=== PATIENT | male | born 1950 | race Caucasian/White ===

== ENCOUNTER 2018-02-12 22:10 | Observation (INO) | payer MEDICARE, MEDICAID ==
[~2018-02-12] VITALS: Ht 175.3 cm; Wt 98.0 kg
[~2018-02-12 22:10] MED LIST: BLOOD PRESSURE; NORV10TA PO; PRIN10TA PO
[2018-02-12 22:17] VITALS: BP 111/53; PULSE 84; RESP 18; TEMP 97.8; O2SAT 96
[2018-02-12 22:23] VITALS: O2SAT 98
[2018-02-12] MEDS ORDERED: LORazepam 2 MG/ML VIAL IV PUSH ONE (22:30)
[2018-02-12] MEDS ORDERED: SODIUM CHLORIDE 0.9% FLUSH 10 ML FLUSH IVF PRN (22:30)
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
[2018-02-12 22:42] LABS: BASOPHIL % 0.7 % (0.0-2.0); EOSINOPHIL # 0.1 TH/MM3 (0-0.4); EOSINOPHIL % 1.9 % (0.0-4.0); HEMATOCRIT 40.2 % (39.0-51.0); HEMOGLOBIN 13.8 GM/DL (13.0-17.0); LYMPH % 18.1 % (9.0-44.0); MEAN CORPUSCULAR HEMOGLOBIN 29.9 PG (27.0-34.0); MEAN CORPUSCULAR HGB CONC 34.3 % (32.0-36.0); MEAN PLATELET VOLUME 9.3 FL (7.0-11.0); MONO % 8.4 % (0.0-8.0); MONOCYTE # 0.5 TH/MM3 (0-0.9); NEUT % 70.9 % (16.0-70.0); PLATELET COUNT 179 TH/MM3 (150-450); RED BLOOD COUNT 4.62 MIL/MM3 (4.50-5.90); RED CELL DISTRIBUTION WIDTH 13.9 % (11.6-17.2); WHITE BLOOD COUNT 5.6 TH/MM3 (4.0-11.0)
[2018-02-12 23:06] LABS: ALBUMIN 3.8 GM/DL (3.4-5.0); ALT (GPT) 39 U/L (12-78); AST (GOT) 41 U/L (15-37); BICARBONATE 25.3 MEQ/L (21.0-32.0); BLOOD UREA NITROGEN 18 MG/DL (7-18); CALCIUM 8.5 MG/DL (8.5-10.1); CHLORIDE 96 MEQ/L (98-107); GLOMERULAR FILTRATION RATE 51 ML/MIN (>89); GLUCOSE,RANDOM 247 MG/DL (74-106); SODIUM (NA) 134 MEQ/L (136-145)
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
[2018-02-12 23:09] LABS: ALKALINE PHOSPHATASE 111 U/L (45-117); TOTAL BILIRUBIN ADULT 0.8 MG/DL (0.2-1.0)
[2018-02-12 23:18] LABS: ACETAMINOPHEN LESS THAN 2.0 MCG/ML (10.0-30.0)
[2018-02-13] VITALS (8 sets, daily range): BP systolic 90–173; BP diastolic 60–91; PULSE 62–103; RESP 16–20; TEMP 98.7; O2SAT 93–100
[2018-02-13] MEDS ORDERED: POTASSIUM CHLORIDE 10 MEQ CONTROLLED RELEASE TAB PO ONE (02:45)
[2018-02-13] MEDS ORDERED: LORazepam 2 MG/ML VIAL IV PUSH ONE (05:00)
[2018-02-13 05:22] LABS: AMORPHOUS SEDIMENT, URINE RARE; BILIRUBIN, URINE NEG (NEG); BLOOD, URINE NEG (NEG); GLUCOSE,URINE NEG (NEG); HYALINE CAST, URINE 3 /lpf (RARE); KETONE, URINE NEG (NEG); MUCUS URINE FEW /lpf (OCC); NITRITE,URINE NEG (NEG); PH, URINE 5.5 (5.0-8.5); SQUAMOUS EPITHELIAL CELL URINE <1 /hpf (0-5); URINE COLOR YELLOW (YELLW/STRAW); URINE LEUKOCYTE ESTERASE NEG (NEG)
[2018-02-13] MEDS ORDERED: LACTULOSE SYRUP 20 GM/30 ML CUP PO PRN (06:00)
[2018-02-13] MEDS ORDERED: MAGNESIUM HYDROXIDE SUSP 30 ML CUP PO PRN (06:00)
[2018-02-13] MEDS ORDERED: SENNOSIDES 8.6 MG TAB PO PRN (06:00)
[2018-02-13] MEDS ORDERED: GLUCAGON 1 MG/ML VIAL OTHER PRN (06:00)
[2018-02-13] MEDS ORDERED: DEXTROSE 50% IN WATER 50 ML VIAL(D50) IV PUSH PRN (06:00)
[2018-02-13] MEDS ORDERED: BISACODYL 10 MG SUPP RECTAL PRN (06:00)
[2018-02-13] MEDS ORDERED: SODIUM CHLORIDE 0.9% FLUSH 10 ML FLUSH IV FLUSH PRN (06:00)
[2018-02-13] MEDS: SODIUM CHLOR 0.9% 1000 ML INJ 1,000 ML IV SCH ×2 (06:17→16:16)
[2018-02-13] MEDS: INSULIN ASPART SUPPLEMENTAL SCALE SQ SCH ×4 (08:00→22:18)
[2018-02-13] MEDS ORDERED: THIAMINE INJ 100 MG in SODIUM CHLORIDE 0.9% INJ 100 ML IV ONE (09:00)
[2018-02-13 10:29] LABS: HEMOGLOBIN A1C 9.9 % (4.3-6.0)
[2018-02-13] MEDS: SODIUM CHLORIDE 0.9% FLUSH 10 ML FLUSH IV FLUSH SCH ×2 (10:55→21:00)
[2018-02-13] MEDS: DOCUSATE SODIUM 50 MG/SENNA 8.6 MG TAB PO SCH ×2 (10:56→21:00)
[2018-02-13] MEDS ORDERED: NALOXONE HCL 0.4 MG/ML AMP ONE (14:31)
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
[2018-02-13 18:54] LABS: ALBUMIN 3.2 GM/DL (3.4-5.0); ALKALINE PHOSPHATASE 94 U/L (45-117); ALT (GPT) 34 U/L (12-78); AST (GOT) 32 U/L (15-37); BICARBONATE 29.3 MEQ/L (21.0-32.0); BLOOD UREA NITROGEN 13 MG/DL (7-18); CALCIUM 8.4 MG/DL (8.5-10.1); CHLORIDE 104 MEQ/L (98-107); CREATININE 0.81 MG/DL (0.60-1.30); GLOMERULAR FILTRATION RATE 95 ML/MIN (>89); GLUCOSE,RANDOM 125 MG/DL (74-106); SODIUM (NA) 141 MEQ/L (136-145); TOTAL BILIRUBIN ADULT 0.4 MG/DL (0.2-1.0); TOTAL PROTEIN 6.9 GM/DL (6.4-8.2)
[2018-02-14] MEDS: SODIUM CHLOR 0.9% 1000 ML INJ 1,000 ML IV SCH (01:47)
[2018-02-14 04:18] VITALS: BP 139/79; PULSE 77; RESP 18; TEMP 98.6; O2SAT 98
[2018-02-14 07:36] LABS: AUTOMATED NEUTROPHIL # 3.3 TH/MM3 (1.8-7.7); BASOPHIL % 0.5 % (0.0-2.0); EOSINOPHIL # 0.2 TH/MM3 (0-0.4); EOSINOPHIL % 3.7 % (0.0-4.0); HEMATOCRIT 38.4 % (39.0-51.0); LYMPHOCYTE # 1.5 TH/MM3 (1.0-4.8); MEAN CELL VOLUME 87.4 FL (80.0-100.0); MEAN CORPUSCULAR HEMOGLOBIN 29.6 PG (27.0-34.0); MEAN CORPUSCULAR HGB CONC 33.9 % (32.0-36.0); MEAN PLATELET VOLUME 9.6 FL (7.0-11.0); MONO % 10.1 % (0.0-8.0); MONOCYTE # 0.6 TH/MM3 (0-0.9); NEUT % 58.7 % (16.0-70.0); PLATELET COUNT 152 TH/MM3 (150-450); RED CELL DISTRIBUTION WIDTH 13.9 % (11.6-17.2); WHITE BLOOD COUNT 5.6 TH/MM3 (4.0-11.0)
[2018-02-14 08:10] LABS: ALBUMIN 3.1 GM/DL (3.4-5.0); AST (GOT) 29 U/L (15-37); BICARBONATE 26.5 MEQ/L (21.0-32.0); BLOOD UREA NITROGEN 10 MG/DL (7-18); CALCIUM 8.4 MG/DL (8.5-10.1); CHLORIDE 107 MEQ/L (98-107); CREATININE 0.62 MG/DL (0.60-1.30); GLOMERULAR FILTRATION RATE 130 ML/MIN (>89); GLUCOSE,RANDOM 168 MG/DL (74-106); SODIUM (NA) 143 MEQ/L (136-145)
[2018-02-14 08:14] LABS: ALKALINE PHOSPHATASE 94 U/L (45-117); ALT (GPT) 33 U/L (12-78); TOTAL BILIRUBIN ADULT 0.4 MG/DL (0.2-1.0); TOTAL PROTEIN 6.8 GM/DL (6.4-8.2)
[2018-02-14] MEDS ORDERED: POTASSIUM CHLORIDE 10 MEQ CONTROLLED RELEASE TAB PO ONE (08:15)
[2018-02-14 09:02] VITALS: BP 160/79; PULSE 72; RESP 18; TEMP 98.1; O2SAT 93
[2018-02-14 09:06] LABS: MAGNESIUM 2.1 MG/DL (1.5-2.5)
--- NOTE | 2018-02-14 09:35 | HHI.PR ---
Subjective Remarks She says he is feeling better today. Much more alert. Patient says that his brother and mother recently, and that he did not want to but did not want to live. He says he took 3 tablets of OxyContin which he obtained illegally. Says he was also snorting heroin. Objective Vital Signs Date Time Temp Pulse Resp B/P (MAP) Pulse Ox O2 Delivery O2 Flow Rate FiO2 02/14/18 09:02 98.1 72 18 160/79 (106) 93 02/14/18 04:18 98.6 77 18 139/79 (99) 98 02/13/18 23:30 98.7 78 18 145/89 (107) 97 02/13/18 20:01 98.7 77 18 154/91 (112) 96 02/13/18 12:27 83 02/13/18 12:00 98.7 100 20 133/75 (94) 100 02/13/18 10:10 94 173/78 (109) I/O 02/13/18 02/13/18 02/13/18 02/14/18 02/14/18 02/14/18 07:00 15:00 23:00 07:00 15:00 23:00 Output Total 900 ml Balance -900 ml Output Urine Total 900 ml Result Diagram: 02/14/1862802/14/18628 Objective Remarks GENERAL: Patient sleeping, wakes of her exam. Much more alert than yesterday. He knows his location, his name, however cannot tell me the year, tells me Charles Carr is president SKIN: Warm and dry. HEAD: Normocephalic. EYES: No scleral icterus. No injection or drainage. NECK: Supple, trachea midline. No JVD. CARDIOVASCULAR: Regular rate and rhythm without murmurs, gallops, or rubs. RESPIRATORY: Breath sounds equal bilaterally. No accessory muscle use. GASTROINTESTINAL: Abdomen soft, non-tender, nondistended. MUSCULOSKELETAL: No cyanosis, or edema. BACK: Nontender without obvious deformity. No CVA tenderness. A/P Assessment and Plan //Suspected opioid overdose //Toxic encephalopathy on admission = Drug screen positive for opioids and benzodiazepines, marijuana = CT head negative for acute process Initially improved with Narcan, with subsequent worsening Will order Narcan. If no improvement will need to consult neurology. Appreciate nursing assistance. = 02/14. Improvement after Narcan yesterday, however patient still confused, disoriented to year. Still more elements of history. Appears to be suicide attempt will continue to monitor. //Suspected suicide attempt -Recent passing of mother, brother. Patient says he took OxyContin. Says he did not want to but did not want to live //History of Parkinson's. Patient does have a pill-rolling tremor, however is able to move extremities. We will continue to monitor. = She will continue tremors, reportedly at baseline. Patient is very depressed about his mobility issues, will consult neurology for assistance //Chronic right leg pain, weakness. Secondary to previous injuries. Order PT consult. //Hyperglycemia on admission. //Diabetes mellitus. Poorly controlled -blood sugars in the 240s on admission. A1c 9.9. Diabetes mellitus. Diabetic diet and insulin sliding scale. = Continue diabetic diet, insulin sliding scale. No outside food. //Impaired renal function. Creatinine 1.4 on admission. Unknown baseline. IV hydration. Continue to monitor. = Resolved after hydration. //Hypokalemia. 3.0. Replace and monitor. Magnesium within normal limits. //Elevated CK. Repeat ordered and pending. Discharge Planning Pending psychiatry evaluation. Patient still disoriented, however improving Jet Morgan MD Feb 14, 2018 09:35
[2018-02-14] MEDS: DOCUSATE SODIUM 50 MG/SENNA 8.6 MG TAB PO SCH ×2 (09:48→20:47)
[2018-02-14] MEDS: SODIUM CHLORIDE 0.9% FLUSH 10 ML FLUSH IV FLUSH SCH ×2 (09:49→20:47)
[2018-02-14] MEDS: INSULIN ASPART SUPPLEMENTAL SCALE SQ SCH ×4 (09:50→21:00)
[2018-02-14] MEDS: NS + KCL 20 MEQ INJ 1,000 ML IV SCH ×2 (09:51→18:30)
[2018-02-14 12:12] VITALS: BP 169/99; PULSE 78; RESP 18; TEMP 98.7; O2SAT 96
--- NOTE | 2018-02-14 13:36 | PD.PSY.CON ---
Provisional Diagnosis Admission Date Feb 13, 2018 at 05:41 [place] I. Polysubstance dependence including heroin, benzodiazepines, cannabis [place] II. Personality disorder History of Present Illness Service Psychiatry Consult Requested By Medicine Reason for Consult Suicidal attempt Primary Care Physician Kee Gordillo MD HPI The patient is 67-year-old man, domiciled along in [facility], , unemployed, on SSI, with psychiatric history of polysubstance dependence including benzodiazepines, heroin, cannabis, no previous psychiatric hospitalizations, no previous suicide attempts, medical history of Parkinson and diabetes, who presented last night secondary to altered mental status. Initial patient's friend was at bedside. She says that she had not seen patient in several days, checked on him yesterday and he was found to be somnolent with slurred speech. Patient takes several medications, however she does not know what medications he takes. Patient himself attempts to answer simple questions, however no meaningful information. Friend at bedside says that patient was initially awake after arriving to the ER, however has become less alert subsequently. Patient did receive Narcan by EMS prior to arrival. Today the patient has being calm, cooperative, somewhat confused. Patient reports that he has been using drugs in the last days. He admitted to be an addict of heroine, cannabis and "street pills". The patient denies symptoms of depression, anxiety, priscilla and psychosis. He is logical, coherent and relevant. Oriented 3. The patient denies suicidal and homicidal ideation, he denies visual and auditory hallucinations. Review of Systems Constitutional: DENIES: Diaphoretic episodes, Fatigue, Fever, Weight gain, Weight loss, Chills, Dizziness, Change in appetite, Night Sweats Endocrine: DENIES: Heat/cold intolerance, Polydipsia, Polyuria, Polyphagia Eyes: DENIES: Blurred vision, Diplopia, Eye inflammation, Eye pain, Vision loss , Photosensitivity, Double Vision Ears, nose, mouth, throat: DENIES: Tinnitus, Hearing loss, Vertigo, Nasal discharge, Oral lesions, Throat pain, Hoarseness, Ear Pain, Running Nose, Epistaxis, Sinus Pain, Toothache, Odynophagia Respiratory: DENIES: Apneas, Cough, Snoring, Wheezing, Hemoptysis, Sputum production, Shortness of breath Cardiovascular: DENIES: Chest pain, Palpitations, Syncope, Dyspnea on Exertion , PND, Lower Extremity Edema, Orthopnea, Claudication Gastrointestinal: DENIES: Abdominal pain, Black stools, Bloody stools, Constipation, Diarrhea, Nausea, Vomiting, Difficulty Swallowing, Anorexia Genitourinary: DENIES: Sexual dysfunction, Urinary frequency, Urinary incontinence, Urgency, Hematuria, Dysuria, Nocturia, Penile Discharge, Testicular Pain, Testicular Swelling Musculoskeletal: DENIES: Joint pain, Muscle aches, Stiffness, Joint Swelling, Back pain, Neck pain Integumentary: DENIES: Abnormal pigmentation, Nail changes, Pruritus, Rash Hematologic/lymphatic: DENIES: Bruising, Lymphadenopathy Immunologic/allergic: DENIES: Eczema, Urticaria Neurologic: DENIES: Abnormal gait, Headache, Localized weakness, Paresthesias, Seizures, Speech Problems, Tremor, Poor Balance Psychiatric: DENIES: Anxiety, Confusion, Mood changes, Depression, Hallucinations, Agitation, Suicidal Ideation, Homicidal Ideation, Delusions Past Family Social History Coded Allergies: No Known Allergies (Verified Allergy, Unknown, 02/13/18) Unable to Obtain Active Prescriptions or Reported Meds Current Medications Medications (Trade) Dose Ordered Sig/Brad Route Start Time Stop Time Status Last Admin (D50w (Vial) Inj) 50 ml UNSCH PRN IV PUSH 02/13/18 06:00 (Glucagon Inj) 1 mg UNSCH PRN OTHER 02/13/18 06:00 (NovoLOG SUPPLEMENTAL SCALE) 1 ACHS SLIDING SCALE SQ 02/13/18 08:00 02/14/18 09:50 (NS Flush) 2 ml UNSCH PRN IV FLUSH 02/13/18 06:00 (NS Flush) 2 ml BID IV FLUSH 02/13/18 09:00 02/14/18 09:49 (Yumiko-Colace) 1 tab BID PO 02/13/18 09:00 02/14/18 09:48 (Milk Of Magnesia Liq) 30 ml Q12H PRN PO 02/13/18 06:00 (Senokot) 17.2 mg Q12H PRN PO 02/13/18 06:00 (Dulcolax Supp) 10 mg DAILY PRN RECTAL 02/13/18 06:00 (Lactulose Liq) 30 ml DAILY PRN PO 02/13/18 06:00 Potassium Chloride/Sodium Chloride 1,000 ml @ 100 mls/hr Q10H IV 02/14/18 08:30 02/14/18 09:51 Family Psych History No family psychiatric history Social History Patient was born and raised in [place], he lives in [facility], he is , father of 4 kids, unemployed, on SSI Patient's Strengths (min. 2) Verbal communication Physical Exam Somewhat hypoactive, tremulous, but no EPS, no stiffness Vital Signs Vital Signs Date Time Temp Pulse Resp B/P (MAP) Pulse Ox O2 Delivery O2 Flow Rate FiO2 02/14/18 12:12 98.7 78 18 169/99 (122) 96 02/13/18 05:04 Room Air 02/13/18 03:38 2.00 I/O 02/14/18 02/14/18 02/15/18 08:00 16:00 00:00 Output Total 1300 ml Balance -1300 ml Lab Results Test 02/13/18 18:00 02/14/18 06:29 Blood Urea Nitrogen 13 MG/DL 10 MG/DL Creatinine 0.81 MG/DL 0.62 MG/DL Random Glucose 125 MG/DL 168 MG/DL Total Protein 6.9 GM/DL 6.8 GM/DL Albumin 3.2 GM/DL 3.1 GM/DL Calcium Level 8.4 MG/DL 8.4 MG/DL Alkaline Phosphatase 94 U/L 94 U/L Aspartate Amino Transf (AST/SGOT) 32 U/L 29 U/L Alanine Aminotransferase (ALT/SGPT) 34 U/L 33 U/L Total Bilirubin 0.4 MG/DL 0.4 MG/DL Sodium Level 141 MEQ/L 143 MEQ/L Potassium Level 3.2 MEQ/L 3.0 MEQ/L Chloride Level 104 MEQ/L 107 MEQ/L Carbon Dioxide Level 29.3 MEQ/L 26.5 MEQ/L Anion Gap 8 MEQ/L 10 MEQ/L Estimat Glomerular Filtration Rate 95 ML/MIN 130 ML/MIN White Blood Count 5.6 TH/MM3 Red Blood Count 4.40 MIL/MM3 Hemoglobin 13.0 GM/DL Hematocrit 38.4 % Mean Corpuscular Volume 87.4 FL Mean Corpuscular Hemoglobin 29.6 PG Mean Corpuscular Hemoglobin Concent 33.9 % Red Cell Distribution Width 13.9 % Platelet Count 152 TH/MM3 Mean Platelet Volume 9.6 FL Neutrophils (%) (Auto) 58.7 % Lymphocytes (%) (Auto) 27.0 % Monocytes (%) (Auto) 10.1 % Eosinophils (%) (Auto) 3.7 % Basophils (%) (Auto) 0.5 % Neutrophils # (Auto) 3.3 TH/MM3 Lymphocytes # (Auto) 1.5 TH/MM3 Monocytes # (Auto) 0.6 TH/MM3 Eosinophils # (Auto) 0.2 TH/MM3 Basophils # (Auto) 0.0 TH/MM3 CBC Comment DIFF FINAL Differential Comment Magnesium Level 2.1 MG/DL Total Creatine Kinase 217 U/L Mental Status Examination Appearance: Appropriate Consciousness: Alert Orientation: x4 Motor Activity: Normal gait Speech: Unremarkable Language: Adequate Fund of Knowledge: Adequate Attention and Concentration: Adequate Memory: Unremarkable Mood: Appropriate Affect: Appropriate Thought Process & Associations: Intact Thought Content: Appropriate Hallucination Type: None Delusion Type: None Suicidal Ideation: No Suicidal Plan: No Suicidal Intention: No Homicidal Ideation: No Homicidal Plan: No Homicidal Intention: No Insight: Adequate Judgment: Adequate Assessment & Plan Problem List: (1) Polysubstance dependence ICD Codes: F19.20 - Other psychoactive substance dependence, uncomplicated Assessment & Plan: On psychiatric evaluation today the patient does not present any neuropsychiatric symptoms or require immediate psychiatric intervention, he denies depression, denies anxiety, denies priscilla and psychosis. He denies suicidal enemas ideation, he denies visual and auditory hallucinations. Recent suicidal statements in the ER were most probably secondary to acute polysubstance intoxication, also to conscious simulation and cluster B personality traits. Patient does not meet criteria for involuntary psychiatric admission. Patient would really benefit of comprehensive rehabilitation treatment. Can use clonidine 0.1 mg/Benadryl 50 mg po every 8 hours as needed opiates withdrawal. Avoid narcotics as much as possible. Support, motivation, psych education provided. Assessment & Plan Estimated LOS: Leon Ya MD Feb 14, 2018 13:36
--- NOTE | 2018-02-14 13:57 | MB ---
cc: Rosio Wu MD DATE: 02/14/2018 REASON FOR CONSULTATION: Change in mental status. HISTORY OF PRESENT ILLNESS: This is a 67-year-old man with change in mental status, came in altered on 02/13/2018. He is very emotional and crying, has PT at bedside. He does not really tell me what medical history he has. He does not tell me the medications he is on. He states that he had foot surgery on the right foot that went bad from Dr. Post. I think it is for a fracture. He states that he has been falling. He cannot walk. He has been incontinent. He was found to have a UDS positive for benzos, cannabinoids and opiates. He was given some Narcan and more alert today. There was some OxyContin being used illegally, some snorting of heroin possibly. He apparently states he lives alone, but has some friends nearby. Medicine is unknown. PHYSICAL EXAMINATION: VITAL SIGNS: Temperature is 98.7, pulse 78, respiratory rate 18, blood pressure 169/99. NECK: Supple. HEART: Tachycardic. NEUROLOGIC: He is awake and alert. He goes between normal and crying for no apparent reason. When asked questions, not sure if he has a history of a pseudobulbar affect, but he states he used to box. He may have had some head trauma. Pupils are reactive. He has good range of motion of his C-spine, but he does have diffuse atrophy in his arms, especially FDI bilaterally. Reflexes difficult to assess because he is shaking resting leyva, as well as an intention leyva. I do not feel any significant cogwheeling at this time. He has a hard time on [id number], is very shaky and he looks more dysmetric than shaky. DTRs in his knees, he states they hurt so they were not hyperreflexic. He has bilateral foot drops. Toes he withdraws. Gait: PT tried to get him out of bed. He does not have any truncal ataxia. When he got up, he basically was on his toes. He had very high steppage gait, very, very unsteady, could not take more than 2 steps with a walker and a gait belt, due to safety was put back in bed. LABORATORY DATA: Reviewed. His CBC is really not very abnormal. Chemistries are reviewed. His hemoglobin A1c is 9.9. His CK is 683, now 217. Albumin 3.1, potassium 3, glucose 168. Tox screen as stated was positive for cannabinoids, benzos and opiates. Imaging study of the brain did not show anything acute, noncontrast, was negative. ASSESSMENT AND PLAN: A 67-year-old man with severe tremor, weakness in the upper and lower extremities, incontinence, bilateral foot drop. Doubt Parkinson's, looks more ataxic-like. Recommend to go ahead and try to get an EEG. Continue hydrating him. Get an MRI of the brain and C-spine. If those prove to be negative, then further recommendations will be made accordingly. He will need extensive PT and will need to be admitted to a rehab type facility. I will go ahead and get some labs also and make further recommendations accordingly. MD MAGNO Chau/VIOLET , 01:33 PM , 01:55 PM
[2018-02-14 15:47] LABS: FREE T4 1.21 NG/DL (0.76-1.46)
[2018-02-14 15:52] VITALS: BP 177/97; PULSE 78; RESP 18; TEMP 98; O2SAT 97
--- NOTE | 2018-02-14 16:24 | RADRPT ---
EXAM DATE: 02/14/2018 4:19 PM EDT AGE/SEX: 67 years / Male INDICATIONS: MRI clearance. CLINICAL DATA: This is the patient's initial encounter. Patient reports that signs and symptoms have been present for 1 day and indicates a pain score of 0/10. MEDICAL/SURGICAL HISTORY: Hypertension. None. COMPARISON: No prior exams available for comparison. FINDINGS: The bowel gas pattern is within normal limits. No free air is identified. There are surgical clips s een within the midabdomen just to the right of the midline. There are degenerative changes within the spine. The limited portion of lung base visualized is clear. CONCLUSION: Benign-appearing bowel gas pattern. There are some small surgical clips seen in the midabdomen. Electronically signed by: Luther Garcia MD 02/14/2018 4:22 PM EDT
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
[2018-02-14 20:25] VITALS: BP 175/85; PULSE 72; RESP 16; TEMP 98.8; O2SAT 97
[2018-02-14] MEDS: cloNIDine HCL 0.1 MG TAB PO SCH (21:00)
--- NOTE | 2018-02-14 22:35 | MG ---
cc: Josesito Sanchez MD DATE OF STUDY: 02/14/2018 ELECTROENCEPHALOGRAM RECORD NUMBER: [id number]. DESCRIPTION: 4-5 Hz theta activity with admixed 1-2 Hz delta activity occurring 10-50 microvolts frequent motion movement artifact, eye movement artifact. Good EEG variability and reactivity. more generalized slowing, slow eye movements, suggestive of drowsy state. Mid temporal slowing or drowsiness. would appear to be stage I sleep, some spindles suggestive of stage II sleep. Reduced driving with photic stimulation. Single lead EKG showing sinus rhythm. INTERPRETATION: Mild encephalopathy in sleep state. Clinical correlation. MD SELVIN Badillo/VERITO/sharlene , 09:01 PM , 09:15 PM MTDSergio
[2018-02-15 01:29] VITALS: BP 132/87; PULSE 65; RESP 16; TEMP 97.8; O2SAT 96
[2018-02-15] MEDS: NS + KCL 20 MEQ INJ 1,000 ML IV SCH ×2 (04:30→14:30)
[2018-02-15] MEDS ORDERED: POTASSIUM CHLORIDE INJ 20 MEQ in SODIUM CHLOR 0.9% 1000 ML INJ 1,000 ML IV SCH (05:47)
[2018-02-15 06:58] LABS: AUTOMATED NEUTROPHIL # 3.5 TH/MM3 (1.8-7.7); BASOPHIL % 0.6 % (0.0-2.0); EOSINOPHIL # 0.2 TH/MM3 (0-0.4); EOSINOPHIL % 3.6 % (0.0-4.0); HEMATOCRIT 40.8 % (39.0-51.0); HEMOGLOBIN 14.1 GM/DL (13.0-17.0); LYMPH % 25.4 % (9.0-44.0); LYMPHOCYTE # 1.5 TH/MM3 (1.0-4.8); MEAN CELL VOLUME 86.5 FL (80.0-100.0); MEAN CORPUSCULAR HGB CONC 34.7 % (32.0-36.0); MEAN PLATELET VOLUME 9.5 FL (7.0-11.0); MONO % 9.4 % (0.0-8.0); MONOCYTE # 0.5 TH/MM3 (0-0.9); PLATELET COUNT 165 TH/MM3 (150-450); RED BLOOD COUNT 4.72 MIL/MM3 (4.50-5.90); RED CELL DISTRIBUTION WIDTH 13.9 % (11.6-17.2); WHITE BLOOD COUNT 5.7 TH/MM3 (4.0-11.0)
[2018-02-15 07:04] LABS: ALBUMIN 3.2 GM/DL (3.4-5.0); BICARBONATE 25.6 MEQ/L (21.0-32.0); CALCIUM 8.9 MG/DL (8.5-10.1); CREATININE 0.64 MG/DL (0.60-1.30); MAGNESIUM 1.9 MG/DL (1.5-2.5); PHOSPHORUS 2.1 MG/DL (2.5-4.9)
[2018-02-15] MEDS: INSULIN ASPART SUPPLEMENTAL SCALE SQ SCH ×3 (08:00→17:00)
[2018-02-15] MEDS: DOCUSATE SODIUM 50 MG/SENNA 8.6 MG TAB PO SCH (09:00)
[2018-02-15] MEDS: SODIUM CHLORIDE 0.9% FLUSH 10 ML FLUSH IV FLUSH SCH (09:00)
[2018-02-15] MEDS: cloNIDine HCL 0.1 MG TAB PO SCH (09:00)
[2018-02-15] MEDS ORDERED: CLON.1 PO (10:16)
--- NOTE | 2018-02-15 10:23 | HHI.PR ---
Subjective Remarks Patient says he is feeling all better today. He would like to go home. Denies any chest pain or shortness of breath. Continues with bilateral tremor. Objective Vital Signs Date Time Temp Pulse Resp B/P (MAP) Pulse Ox O2 Delivery O2 Flow Rate FiO2 02/15/18 01:29 97.8 65 16 132/87 (102) 96 02/14/18 20:25 98.8 72 16 175/85 (115) 97 02/14/18 15:52 98.0 78 18 177/97 (123) 97 02/14/18 12:12 98.7 78 18 169/99 (122) 96 I/O 02/14/18 02/14/18 02/14/18 02/15/18 02/15/18 02/15/18 07:00 15:00 23:00 07:00 15:00 23:00 Intake Total 1200 ml Output Total 1300 ml 800 ml Balance -1300 ml 400 ml Intake Oral 1200 ml Output Urine Total 1300 ml 800 ml Result Diagram: 02/15/18 0550 02/15/18 0550 Objective Remarks GENERAL: Patient awake, alert. Patient is able to tell me Mauricio Arcos is present, can tell me his name and location, tells me it is made, however does not know the year. SKIN: Warm and dry. HEAD: Normocephalic. EYES: No scleral icterus. No injection or drainage. NECK: Supple, trachea midline. No JVD. CARDIOVASCULAR: Regular rate and rhythm without murmurs, gallops, or rubs. RESPIRATORY: Breath sounds equal bilaterally. No accessory muscle use. GASTROINTESTINAL: Abdomen soft, non-tender, nondistended. MUSCULOSKELETAL: No cyanosis, or edema. BACK: Nontender without obvious deformity. No CVA tenderness. A/P Assessment and Plan //Suspected opioid overdose //Toxic encephalopathy on admission = Drug screen positive for opioids and benzodiazepines, marijuana = CT head negative for acute process Initially improved with Narcan, with subsequent worsening Will order Narcan. If no improvement will need to consult neurology. Appreciate nursing assistance. = 02/14. Improvement after Narcan yesterday, however patient still confused, disoriented to year. Still more elements of history. Appears to be suicide attempt will continue to monitor = 02/15. Patient denies any suicidal ideation. Improving.. //Suspected suicide attempt -Recent passing of mother, brother. Patient says he took OxyContin. Says he did not want to but did not want to live = Patient been cleared by psychiatry. //History of Parkinson's. Patient does have a pill-rolling tremor, however is able to move extremities. We will continue to monitor. = She will continue tremors, reportedly at baseline. Patient is very depressed about his mobility issues, will consult neurology for assistance = Neuro workup currently with MRI, unremarkable. Some encephalopathy on EEG. Neurology following. Appreciate assistance. //Chronic right leg pain, weakness. Secondary to previous injuries. Patient PT assistance //Hyperglycemia on admission. //Diabetes mellitus. Poorly controlled -blood sugars in the 240s on admission. A1c 9.9. Diabetes mellitus. Diabetic diet and insulin sliding scale. = Continue diabetic diet, insulin sliding scale. No outside food. //Impaired renal function. Creatinine 1.4 on admission. Unknown baseline. IV hydration. Continue to monitor. = Resolved after hydration. //Hypokalemia. 3.0. Replace and monitor. Magnesium within normal limits. //Elevated CK. Repeat ordered and pending. Discharge Planning = Patient will need rehab/SNF referral. Appreciate PT assistance = Pending neurology clearance. Jet Morgan MD Feb 15, 2018 10:23
[2018-02-15 12:00] VITALS: BP 172/97; PULSE 64; RESP 20; TEMP 99; O2SAT 96
--- NOTE | 2018-02-15 16:43 | HHI.FF ---
Face to Face Verification Diagnosis: (1) Polysubstance dependence (2) Altered mental status, unspecified Physical Therapy Order: Evaluate and Treat Home Health Nursing Order: Nursing assessment with vital signs Sanding Machine Buffer Order: To Evaluate: Living conditions/environment Order: To Provide: Long range planning I have seen patient Sudarshan Sanders on 02/15/18. My clinical findings support the need for the requested home health care services because: Limited ability to care for self Need for psychosocial assistance I certify that my clinical findings support that this patient is homebound because: Unsafe to leave home unassisted Jet Morgan MD Feb 15, 2018 16:43
--- NOTE | 2018-02-15 17:35 | HHI.DS ---
Discharge Summary Admission Date Feb 13, 2018 at 05:41 Discharge Date: Feb 15, 2018 Admitting Diagnosis Acute Delirium (1) Heroin overdose ICD Code: T40.1X1A - Poisoning by heroin, accidental (unintentional), initial encounter (2) Oxycontin use disorder, severe ICD Code: F11.20 - Opioid dependence, uncomplicated (3) Drug abuse ICD Code: F19.10 - Other psychoactive substance abuse, uncomplicated (4) Overdose of illicit drug ICD Code: T43.601A - Poisoning by unspecified psychostimulants, accidental ( unintentional), initial encounter (5) Polysubstance dependence ICD Code: F19.20 - Other psychoactive substance dependence, uncomplicated (6) Ataxia ICD Code: R27.0 - Ataxia, unspecified Procedures No invasive procedures. Brief History - From Admission 67-year-old male with a unknown past medical history who presented last night secondary to altered mental status. Patient's friend is at bedside. She says that she had not seen patient in several days, checked on him yesterday and he was found to be somnolent with slurred speech. Patient takes several medications, however she does not know what medications he takes. Patient himself attempts to answer simple questions, however no meaningful information. Friend at bedside says that patient was initially awake after arriving to the ER, however has become less alert subsequently. Patient did receive Narcan by EMS prior to arrival. CBC/BMP: 02/15/18 0550 02/15/18 0550 Significant Findings Laboratory Tests Test 02/12/18 22:31 02/13/18 05:06 02/13/18 18:00 02/14/18 06:29 Neutrophils (%) (Auto) 70.9 % (16.0-70.0) Monocytes (%) (Auto) 8.4 % (0.0-8.0) 10.1 % (0.0-8.0) Creatinine 1.40 MG/DL (0.60-1.30) Random Glucose 247 MG/DL (74-106) 125 MG/DL (74-106) 168 MG/DL (74-106) Aspartate Amino Transf (AST/SGOT) 41 U/L (15-37) Sodium Level 134 MEQ/L (136-145) Potassium Level 3.4 MEQ/L (3.5-5.1) 3.2 MEQ/L (3.5-5.1) 3.0 MEQ/L (3.5-5.1) Chloride Level 96 MEQ/L (98-107) Estimat Glomerular Filtration Rate 51 ML/MIN (>89) Hemoglobin A1c 9.9 % (4.3-6.0) Total Creatine Kinase 683 U/L (39-308) Creatine Kinase MB 8.0 NG/ML (0.5-3.6) Salicylates Level LESS THAN 1.7 MG/DL Acetaminophen Level LESS THAN 2.0 MCG/ML Urine Mucus FEW /lpf (OCC) Urine Opiates Screen POS (NEG) Urine Benzodiazepines Screen POS (NEG) Urine Cannabinoids Screen POS (NEG) Albumin 3.2 GM/DL (3.4-5.0) 3.1 GM/DL (3.4-5.0) Calcium Level 8.4 MG/DL (8.5-10.1) 8.4 MG/DL (8.5-10.1) Red Blood Count 4.40 MIL/MM3 (4.50-5.90) Hematocrit 38.4 % (39.0-51.0) Test 02/14/18 14:40 02/14/18 21:02 02/15/18 05:50 Monocytes (%) (Auto) 9.4 % (0.0-8.0) Random Glucose 178 MG/DL (74-106) Albumin 3.2 GM/DL (3.4-5.0) Phosphorus Level 2.1 MG/DL (2.5-4.9) Imaging Last Impressions Cervical Spine MRI 02/14/18 0000 Signed Impressions: CONCLUSION: Neural foraminal compromise at multiple levels with effacement of the anterior CSF space at C3-4, C5-6 and C6-7 without any significant thecal sa c stenosis. Brain MRI 02/14/18 0000 Signed Impressions: CONCLUSION: Unremarkable study. Abdomen X-Ray 02/14/18 0000 Signed Impressions: CONCLUSION: Benign-appearing bowel gas pattern. There are some small surgical clips seen in the midabdomen. Head CT 02/12/182219 Signed Impressions: CONCLUSION: 1. Negative CT Head non contrast. Hospital Course Patient presented following opioid overdose. Alertness initially improved with Narcan, however subsequently worsened. Alertness improved again with Narcan. Patient reported overdosing on OxyContin which he obtains illegally, as well as harrowing. Alertness and orientation gradually improved, and patient was oriented 3 at the time of discharge. Per discussion with sister, Elis Negrete over the phone, family will be at patient's house to supervise. Patient was evaluated by psychiatry and this was deemed not to be a suicide attempt. Patient does have bilateral tremor, altered gait. Neurology was consulted. Imaging of brain unremarkable, cervical spine showing abnormalities as above, however no cord compression. He'll need to follow with neurology as outpatient. Patient was also found to be in opioid withdrawal, hypertensive, for which clonidine was started. Patient is also hyperglycemic, with A1c 9.9. Patient does not want diabetic treatment as outpatient. He will need to follow-up with primary care to initiate treatment for diabetes. For problem-based summary from most recent progress note, please see below. //Suspected opioid overdose //Toxic encephalopathy on admission = Drug screen positive for opioids and benzodiazepines, marijuana = CT head negative for acute process Initially improved with Narcan, with subsequent worsening Will order Narcan. If no improvement will need to consult neurology. Appreciate nursing assistance. = 02/14. Improvement after Narcan yesterday, however patient still confused, disoriented to year. Still more elements of history. Appears to be suicide attempt will continue to monitor = 02/15. Patient denies any suicidal ideation. Improving.. //Suspected suicide attempt -Recent passing of mother, brother. Patient says he took OxyContin. Says he did not want to but did not want to live = Patient been cleared by psychiatry. //History of Parkinson's. Patient does have a pill-rolling tremor, however is able to move extremities. We will continue to monitor. = She will continue tremors, reportedly at baseline. Patient is very depressed about his mobility issues, will consult neurology for assistance = Neuro workup currently with MRI, unremarkable. Some encephalopathy on EEG. Neurology following. Appreciate assistance. //Chronic right leg pain, weakness. Secondary to previous injuries. Patient PT assistance //Hyperglycemia on admission. //Diabetes mellitus. Poorly controlled -blood sugars in the 240s on admission. A1c 9.9. Diabetes mellitus. Diabetic diet and insulin sliding scale. = Continue diabetic diet, insulin sliding scale. No outside food. //Impaired renal function. Creatinine 1.4 on admission. Unknown baseline. IV hydration. Continue to monitor. = Resolved after hydration. //Hypokalemia. 3.0. Replace and monitor. Magnesium within normal limits. //Elevated CK. Repeat ordered and pending. Discharge Planning = Patient will need rehab/SNF referral. Appreciate PT assistance = Pending neurology clearance. Jet Morgan MD Feb 15, 2018 10:23 Addendum: Jet Morgan MD on 02/15/18 @ 17:32 patient called [facility], and was waiting out by front end ui developer. he tells me it is February and year is 2017. he gave me the number for his sister, Elis Negrete. I discussed with her over the phone. She says that family including brother and ex- are waiting for him at home, will supervise him. She says he sounds to be at baseline. She reports that his neurologic issues have been going on for some time, however he has not sought workup. Patient refuses SNF Pt Condition on Discharge: Good Discharge Disposition: Disch w/ Home Health Serv Discharge Time: > 30 minutes Discharge Instructions DIET: Follow Instructions for: Heart Healthy Diet Activities you can perform: Regular-No Restrictions Other Activity Instructions: use walker at all times Follow up Referrals: Neurology - 1 Week with Rosio Wu MD PCP Follow-up - 1 Week with [facility] Adult - 1 Week New Medications: Clonidine (Catapres) 0.1 Mg Tab 0.1 MG PO Q12HR for Blood Pressure Management for 30 Days, TAB Jet Morgan MD Feb 15, 2018 17:35
== END 2018-02-15 18:14 | disposition home or self-care (01) ==
LOC: NEDAMB 22:10 → NEDA 02-13 05:41 → NEPHCDU 02-13 08:39
PROVIDERS: ADMIT Internal Medicine; ATTEND Internal Medicine
DX: T40.2X1A Poisoning by other opioids, accidental (unintentional), initial encounter (principal); G92 Toxic encephalopathy; G20 Parkinson's disease; E11.65 Type 2 diabetes mellitus with hyperglycemia; E87.6 Hypokalemia; N28.9 Disorder of kidney and ureter, unspecified; I10 Essential (primary) hypertension; F12.90 Cannabis use, unspecified, uncomplicated; F11.23 Opioid dependence with withdrawal; R27.0 Ataxia, unspecified; F32.9 Major depressive disorder, single episode, unspecified; M21.371 Foot drop, right foot; M21.372 Foot drop, left foot; R32 Unspecified urinary incontinence; Z78.1 Physical restraint status
CPT/HCPCS: 70450; 70551; 72141; 74018; 80053; 80069; 80307; 81001; 82550; 82552; 82607; 82948; 83036; 83735; 84207; 84425; 84439; 84443; 85025; 86592; 95819; 96361; 96365; 96372; 96375; 96376; 97110; 97116; 97163; 99285; G0378; G8987; G8988; J1815; J2060; J2310; J3411; J3480; J7030